=== PATIENT | female | born 1950 | race Caucasian/White ===

== ENCOUNTER 2018-10-24 09:58 | Emergency (ER) | payer OTHER ==
[~2018-10-24] VITALS: Ht 152.4 cm; Wt 63.5 kg
[2018-10-24 10:05] VITALS: BP 161/100
--- NOTE | 2018-10-24 10:05 | NUR ---
PT TRAIGED BY IMMI ELDER AT BEDSIDE.
[2018-10-24 10:06] VITALS: BP 161/100
--- NOTE | 2018-10-24 10:10 | NUR ---
REPORT RECIEVED FROM MIMI ELDER. 68 Y FEMALE C/O LEFT BUTTOCK PAIN RADIATING DOWN LEFT LEG X3 DAYS, DENIES INJURY OR TRAUMA. NO OBVIOUS DEFORMITY NOTED. +CMS. PAIN 8. BP 161/100. PT IS PASHTO SPEAKING ONLY. AA0X4. BED IS DOWN, LOCKED, BED RAIL X 1, ERMD TO SEE PT. HX HTN, DENIES TAKING MEDICATIONS
--- NOTE | 2018-10-24 10:40 | NUR ---
PT AMB TO RESTROOM WITH STEADY GAIT
--- NOTE | 2018-10-24 10:42 | NUR ---
Dr. Pritchett evaluating patient at bedside.
[2018-10-24] MEDS ORDERED: KETOROLAC 60 MG/2 ML VIAL IM ONE (10:45)
--- NOTE | 2018-10-24 11:33 | NUR ---
PAIN 4/10 AFTER TORADOL IM
--- NOTE | 2018-10-24 11:37 | NUR ---
DR MAXWELL RE-EVALUATING PT
--- NOTE | 2018-10-24 11:39 | NUR ---
Patient discharged BY DR MAXWELL. Written and verbal after care instructions given and explained BY DR MAXWELL. Patient alert, oriented and Ambulatory with steady gait. ID band removed. Rx of NAPROSYN given.
== END 2018-10-24 11:39 | disposition home or self-care (01) ==
LOC: MED 09:58
DX: M54.42 Lumbago with sciatica, left side (principal); I10 Essential (primary) hypertension
CPT/HCPCS: 96372; 99283; J1885

== ENCOUNTER 2022-07-02 11:36 | Emergency (ER) | payer OTHER ==
[~2022-07-02] VITALS: Ht 152.4 cm; Wt 63.5 kg
[2022-07-02 11:39] VITALS: BP 143/97
--- NOTE | 2022-07-02 11:43 | NUR ---
pt ambulatury to bed 03
--- NOTE | 2022-07-02 11:47 | NUR ---
here for cough, no sob, no ac distress, o2 sat 98% ra, awaits md order
--- NOTE | 2022-07-02 12:17 | NUR ---
X-RAY AT BEDSIDE.
--- NOTE | 2022-07-02 12:40 | NUR ---
a/o times 4, nad, denies any pain, o2 sat 99% ra, no cough noted, awaits dispo.
[2022-07-02] MEDS ORDERED: MUC600 PO (13:02)
[2022-07-02] MEDS ORDERED: BENZ200C4 PO (13:02)
[2022-07-02 13:10] VITALS: BP 132/78
--- NOTE | 2022-07-02 13:10 | NUR ---
Patient discharged with v/s stable. Written and verbal after care instructions given and explained. Patient verbalized understanding. Ambulatory with steady gait. All questions addressed prior to discharge. Advised to follow up with PMD.
== END 2022-07-02 13:10 | disposition home or self-care (01) ==
LOC: MED 11:36
DX: J06.9 Acute upper respiratory infection, unspecified (principal); Z79.899 Other long term (current) drug therapy
CPT/HCPCS: 71045; 99283; Q0092

== ENCOUNTER 2023-03-18 12:26 | Emergency (ER) | payer OTHER ==
[~2023-03-18] VITALS: Ht 152.4 cm; Wt 71.7 kg
[~2023-03-18 12:26] MED LIST: BENZ200C4 PO; MUC600 PO
[2023-03-18 12:53] VITALS: BP 141/83; PULSE 77; RESP 18; TEMP 98.3; O2SAT 99
[2023-03-18] MEDS ORDERED: KETOROLAC 30 MG/ML VIAL IM ONE (13:05)
[2023-03-18 13:40] VITALS: O2SAT 99
[2023-03-18 13:42] LABS: BASOPHILS # (AUTO) 0.1 K/uL (0.00-0.22); BASOPHILS % (AUTO) 0.9 % (0.0-2.0); EOSINOPHILS # (AUTO) 0.2 K/uL (0-0.4); EOSINOPHILS % (AUTO) 2.1 % (0.0-4.0); HEMATOCRIT 37.2 % (36-48); HEMOGLOBIN 12.7 g/dL (12.0-16.0); LYMPHOCYTES # (AUTO) 3.3 K/uL (2.5-16.5); LYMPHOCYTES % (AUTO) 40.1 % (20.5-51.1); MEAN CORPUSCULAR HEMOGLOBIN 32 pg (27-31); MEAN CORPUSCULAR HGB CONC 34 g/dL (33-37); MEAN CORPUSCULAR VOLUME 93.8 fL (80-94); MONOCYTES # (AUTO) 0.7 K/uL (0.8-1.0); MONOCYTES % (AUTO) 8.5 % (1.7-9.3); NEUTROPHILS % (AUTO) 48.4 % (42.2-75.2); PLATELET COUNT (AUTO) 399 K/uL (140-450); RED BLOOD CELL COUNT(AUTO) 3.96 MIL/uL (4.20-5.40); RED CELL DISTRIBUTION WIDTH 12.8 % (11.6-13.7); WHITE BLOOD COUNT (AUTO) 8.3 K/uL (4.8-10.8)
[2023-03-18 14:13] LABS: APPEARANCE,URINE CLEAR (CLEAR); BILIRUBIN,URINE NEGATIVE (NEGATIVE); BLOOD, URINE TRACE-I (NEGATIVE); COLOR,URINE YELLOW (YELLOW); LEUKOCYTE ESTERASE ,URINE 1+ (NEGATIVE); NITRITE, URINE NEGATIVE (NEGATIVE); PROTEIN,URINE NEGATIVE (NEGATIVE); UGLUCOSE NEGATIVE (NEGATIVE); UROBILINOGEN,URINE 0.2 EU/dL (0.2 - 1)
[2023-03-18] MEDS ORDERED: HYDROcodone/APAP 5/325 MG 1 TAB TAB PO ONE (14:15)
[2023-03-18] MEDS ORDERED: [UNRECOGNIZED DRUG - CODE] RC (14:25)
[2023-03-18] MEDS ORDERED: FLONAS NS (14:25)
[2023-03-18] MEDS ORDERED: AMOX1TAB8 PO (14:25)
[2023-03-18] MEDS ORDERED: METF-346 PO (14:25)
[2023-03-18] MEDS ORDERED: MAGN296S70 PO (14:25)
[2023-03-18] MEDS ORDERED: MIRABULK PO (14:25)
[2023-03-18] MEDS ORDERED: ACET-10509 PO (14:26)
[2023-03-18 14:47] LABS: FLU A ANTIGEN negative (NEGATIVE); FLU B ANTIGEN negative (NEGATIVE)
[2023-03-18 14:49] VITALS: O2SAT 99
[2023-03-18 14:56] LABS: RBC,URINE 0-5 /HPF (0-5)
[2023-03-18 14:57] LABS: BACTERIA,URINE 1+ /HPF (None Seen); MUCUS,URINE None Seen /LPF (None Seen); SQUAMOUS EPITHELIAL CELL,UR 4-10 (MOD) /LPF (0-3 (FEW))
[2023-03-18 15:18] LABS: ALANINE AMINOTRANSFERASE 28 U/L (12-78); ALBUMIN 3.4 g/dL (3.4-5.0); ALKALINE PHOSPHATASE 76 U/L (50-136); ANION GAP 11.6 (8-16); ASPARTATE AMINOTRANSFERASE 15 U/L (15-37); CALCIUM 9.4 mg/dL (8.5-10.1); CARBON DIOXIDE 29.1 mmol/L (21-32); CHLORIDE 101 mmol/L (98-107); CREATININE 0.8 mg/dL (0.6-1.3); GLUCOSE 122 mg/dL (74-106); LIPASE 25 U/L (16-77); POTASSIUM 3.7 mmol/L (3.5-5.1); SODIUM SERUM 138 mmol/L (136-145); THYROID STIMULATING HORMONE 2.52 uIU/mL (0.34-3.74); TOTAL BILIRUBIN 0.2 mg/dL (0.0-1.0); TOTAL PROTEIN, SERUM 7.9 g/dL (6.4-8.2); UREA NITROGEN, BLOOD 14 mg/dL (7-18)
== END 2023-03-18 14:45 | disposition home or self-care (01) ==
LOC: MED 12:26
DX: N39.0 Urinary tract infection, site not specified (principal); Z20.822 Contact with and (suspected) exposure to COVID-19; J32.9 Chronic sinusitis, unspecified; K59.00 Constipation, unspecified; E11.65 Type 2 diabetes mellitus with hyperglycemia; I10 Essential (primary) hypertension; Z79.4 Long term (current) use of insulin; Z79.899 Other long term (current) drug therapy
CPT/HCPCS: 36415; 71045; 80053; 81001; 82948; 83690; 84443; 84484; 85025; 87086; 87426; 87804; 93005; 96372; 99285; J1885

== ENCOUNTER 2023-06-11 15:29 | Emergency (ER) | payer OTHER ==
[~2023-06-11] VITALS: Ht 152.4 cm; Wt 61.2 kg
[~2023-06-11 15:29] MED LIST changes: +ACET-10509 PO; +AMOX1TAB8 PO; +FLONAS NS; +MAGN296S70 PO; +METF-346 PO; +MIRABULK PO; +[UNRECOGNIZED DRUG - CODE] RC
[2023-06-11 15:49] VITALS: BP 135/96; PULSE 85; RESP 16; TEMP 98.7; O2SAT 95
[2023-06-11 17:30] VITALS: BP 132/72; PULSE 72; RESP 16; TEMP 98; O2SAT 99
== END 2023-06-11 17:30 | disposition home or self-care (01) ==
LOC: MED 15:29
DX: H91.91 Unspecified hearing loss, right ear (principal); I10 Essential (primary) hypertension; E11.9 Type 2 diabetes mellitus without complications; Z79.4 Long term (current) use of insulin; Z79.899 Other long term (current) drug therapy
CPT/HCPCS: 99281